=== PATIENT | male | born 1940 | race Caucasian/White ===

== ENCOUNTER 2021-12-29 15:51 | Emergency (ER) | payer SELFPAY ==
[~2021-12-29] VITALS: Ht 182.9 cm; Wt 100.0 kg
[2021-12-29 17:10] LABS: BASOPHILS % 0.6 % (0.0-2.0); HEMATOCRIT. 36.6 % (42.0-52.0); HEMOGLOBIN. 12.2 g/dL (14.0-18.0); LYMPHOCYTES % 7.6 % (20.0-50.0); MEAN CORPUSCULAR HEMOGLOBIN 31.6 pg (28.0-32.0); MEAN CORPUSCULAR VOLUME 95.2 fL (80.0-94.0); MONOCYTES % 5.3 % (2.0-8.0); NEUTROPHILS % 86.5 % (40.0-76.0); PLATELET 235 x1000/uL (130-400); RED BLOOD CELL COUNT 3.85 mill/uL (4.7-6.1); RED CELL DISTRIBUTION WIDTH 14.1 % (11.6-14.6)
[2021-12-29 17:18] LABS: CHLORIDE 103 mEq/L (98-107)
[2021-12-29 17:20] LABS: PROTHROMBIN TIME 10.9 sec (9.6-11.0)
[2021-12-29 17:28] LABS: ETHANOL BLOOD < 10 mg/dL
[2021-12-29 20:54] LABS: CLARITY URINE CLEAR (CLEAR); COLOR URINE DARK YELLOW (YELLOW); KETONES URINE TRACE (NEGATIVE); LEUKOCYTE ESTERASE URINE NEGATIVE (NEGATIVE); NITRITE URINE NEGATIVE (NEGATIVE); OCCULT BLOOD URINE NEGATIVE (NEGATIVE); PH URINE 5.5 (4.5-8.0); PROTEIN URINE 1+ (NEGATIVE); SPECIFIC GRAVITY URINE 1.027 (1.005-1.030)
[2021-12-29 22:00] VITALS: BP 125/66
== END 2021-12-29 22:21 | disposition home or self-care (01) ==
LOC: ER 15:51
DX: Z00.00 Encounter for general adult medical examination without abnormal findings (principal); R41.82 Altered mental status, unspecified
CPT/HCPCS: 36415; 80053; 80320; 81003; 84484; 85025; 99284; G0480